=== PATIENT | male | born 2000 | race African-American/Black ===

== ENCOUNTER 2020-05-12 00:11 | Emergency (ER) | payer OTHER, MEDICAID, SELFPAY ==
[2020-05-12 00:25] VITALS: BP 127/67; PULSE 94; RESP 16; TEMP 37.6; O2SAT 98; BMI 22.9
[2020-05-12 01:36] VITALS: BP 118/54; PULSE 95; RESP 18; TEMP 37.1
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
[2020-05-12] MEDS: iohexoL 350 MG/ML 100 ML INFUS..BTL 85 ML IV (03:11)
[2020-05-12 03:19] VITALS: BP 128/58; PULSE 87; RESP 16; O2SAT 99
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
== END 2020-05-12 04:48 | disposition home or self-care (01) ==
PROVIDERS: Emergency Provider Emergency Medicine
DX: Z04.1 Encounter for examination and observation following transport accident (principal); R10.32 Left lower quadrant pain
CPT/HCPCS: 70450; 71045; 72125; 74177; 99284